=== PATIENT | female | born 1980 | race Caucasian/White ===

== ENCOUNTER → 2019-04-25 07:31 | Outpatient (CLI) | payer BC ==
[2010-11-16 18:33] VITALS: BMI 44.8
== END | disposition home or self-care (01) ==
LOC: D.NM 07:31
PROVIDERS: ATTEND Internal Medicine Gastroenterology
DX: R11.0 Nausea (principal); R68.81 Early satiety; R14.0 Abdominal distension (gaseous); K59.00 Constipation, unspecified; R12 Heartburn